=== PATIENT | female | born 1995 | race Two or more races ===

== ENCOUNTER 2024-07-05 11:34 | Emergency (ER) | payer MEDICAID, OTHER ==
[~2024-07-05] VITALS: Ht 162.6 cm; Wt 63.0 kg
[2024-07-05 11:58] VITALS: BP 153/111; PULSE 95; RESP 17; TEMP 98.2; O2SAT 97
[2024-07-05 12:37] LABS: Urine Bacteria MANY /hpf (None Seen); Urine Blood 1+ /uL (Negative); Urine Clarity Clear (Clear); Urine Color Light-Yellow (Yellow); Urine Mucus FEW (None Seen); Urine Protein, UAD 1+ (Negative); Urine Specific Gravity 1.016 (1.001-1.035); Urine Squamous Epithelial Cell FEW /hpf (<5); Urine Urobilinogen Normal (Negative); Urine WBC 8 /HPF (0-5); Urine pH 6.5 (5.0-9.0)
--- NOTE | 2024-07-05 13:34 | ED.PDOC ---
History of Present Illness HPI Comments 28-year-old female with PMHx Asthma presents with a chief complaint of vaginal discharge x 1 week. Patient states that she is having clear discharge from her vagina. Patient mentions that she has not taken any home or OTC medications for this. Patient mentions that she has had this before and was told that it could be a bacterial infection. Patient denies any symptoms other than the discharge at this time. Chief Complaint: Medical Clearance Time Seen by MD: 13:20 Primary Care Provider: none Reviewed Notes: Medications, Allergies Allergies: Coded Allergies: NO KNOWN ALLERGIES (Unverified , 07/05/24) Information Source: Patient Mode of Arrival: Ambulatory Severity: Moderate Timing: Days Duration: Since onset Prehospital treatment: None Past Medical History PAST MEDICAL HISTORY: Asthma Surgical History: Denies all surgeries Family History Family History: Unknown Social History Smoker: Non-Smoker Alcohol: Denies ETOH Use Drugs: Denies Drug Use Lives In: Home Constitutional: denies: chills, diaphoresis, fatigue, fever, malaise, sweats, weakness, others EENTM: denies: blurred vision, double vision, ear bleeding, ear discharge, ear drainage, ear pain, ear ringing, eye pain, eye redness, hearing loss, mouth pain, mouth swelling, nasal discharge, nose bleeding, nose congestion, nose pain, photophobia, tearing, throat pain, throat swelling, voice changes, others Respiratory: denies: cough, hemoptysis, orthopnea, SOB at rest, shortness of breath, SOB with excertion, stridor, wheezing, others Cardiovascular: denies: chest pain, dizzy spells, diaphoresis, Dyspnea on exertion, edema, irregular heart beat, left arm pain, lightheadedness, palpitations, PND, syncope, others Gastrointestinal: denies: abdomen distended, abdominal pain, blood streaked bowels, constipated, diarrhea, dysphagia, difficulty swallowing, hematemesis, melena, nausea, poor appetite, poor fluid intake, rectal bleeding, rectal pain, vomiting, others Genitourinary: reports: vagina discharge; denies: abnormal vagina bleeding, burning, dyspareunia, dysuria, flank pain, frequency, hematuria, incontinence, pain, , urgency, others Neurological: denies: dizziness, fainting, headache, left sided numbness, left sided weakness, numbness, paresthesia, pre-existing deficit, right sided numbness, right sided weakness, seizure, speech problems, tingling, tremors, weakness, others Musculoskeletal: denies: back pain, gout, joint pain, joint swelling, muscle pain, muscle stiffness, neck pain, others Integumetry: denies: bruises, change in color, change in hair/nails, dryness, laceration, lesions, lumps, rash, wounds, others Allergic/Immunocompromised: denies: Difficulty Healing, Frequent Infections, Hives, Itching, others Hematologic/Lymphatic: denies: anemia, blood clots, easy bleeding, easy bruising, swollen glands, others Endocrine: denies: excessive hunger, excessive sweating, excessive thirst, excessive urination, flushing, intolerance to cold, intolerance to heat, unexplained weight gain, unexplained weight loss, others Psychiatric: denies: anxiety, bipolar disorder, depression, hopeless, panic disorder, schizophrenia, sleepless, suicidal, others All Other Systems: Reviewed and Negative Physical Exam General Appearance: No Apparent Distress, Normal HEENT: Normal ENT Inspection, Pharynx Normal, TMs Normal Neck: Full Range of Motion, Non-Tender, Normal, Normal Inspection Respiratory: Chest Non-Tender, Lungs Clear, No Accessory Muscle Use, No Respiratory Distress, Normal Breath Sounds Cardiovascular: No Edema, No JVD, No Murmur, No Gallop, Normal Peripheral Pulses, Regular Rate/Rhythm Breast Exam: Deferred Gastrointestinal: No Organomegaly, Non Tender, No Pulsatile Mass, Normal Bowel Sounds, Soft Genitalia: Deferred Pelvic: Discharge (Medical Records Coder in the room:External vaginal exam no genital warts or lesions. Vaginal canal shows +milky white discharge. No cervical motion tenderness, normal adnexa. No vaginal bleeding or cervicitis.) Rectal: Deferred Extremities: No calf tenderness, Normal capillary refill, Normal inspection, Normal range of motion, Non-tender, No pedal edema Musculoskeletal : Apperance: Normal Neurologic: Alert, shear scrapman II-XII nml as Tested, No Motor Deficits, Normal Affect, Normal Mood, No Sensory Deficits Cerebellar Function: Normal Reflexes: Normal Skin: Dry, Normal Color, Warm Lymphatic: No Adenopathy Was a procedure done? Was a procedure done?: No Differential Dx Considerations may include: vaginitis, yeast infection, g/c, uti X-Ray, Labs, Meds, VS Vital Signs Date Time Temp Pulse Resp B/P (MAP) Pulse Ox O2 Delivery O2 Flow Rate FiO2 07/05/24 11:58 98.2 95 17 153/111 (125) 97 98.2 Lab Test 07/05/24 14:05 07/05/24 11:35 Range/Units Vaginal WBC (Wet Prep) Moderate Vaginal RBC (Wet Prep) None seen Vaginal Epithelial Cells (Wet Prep) Many Vaginal Bacteria (Wet Prep) Few Vaginal Trichomonas (Wet Prep) Not present Vaginal Yeast (Wet Prep) None seen Vaginal Clue Cells (Wet Prep) Few Urine Color Light-yellow Yellow Urine Clarity Clear Clear Urine pH 6.5 5.0-9.0 Urine Specific [place] 1.016 1.001-1.035 Urine Protein 1+ H Negative Urine Ketones Negative Negative Urine Blood 1+ H Negative /uL Urine Nitrite Negative Negative Urine Bilirubin Negative Negative Urine Urobilinogen Normal Negative mg/dL Urine Leukocyte Esterase 1+ Negative /uL Urine RBC 3 0 - 4 /hpf Urine Microscopic WBC 8 H 0-5 /HPF Urine Squamous Epithelial Cells Few <5 /hpf Urine Bacteria Many H None Seen /hpf Urine Mucus Few None Seen Urine Glucose Normal Normal mg/dL Urine Test Negative Negative Chlamydia trachomatis (DONNIE) Pending Neisseria gonorrhoeae (DONNIE) Pending X-Ray, Labs, Meds, VS Comment female presents with vaginal discharge Well appearing, vitals within normal limits, benign abdominal exam Concern for bacterial vaginosis vs less likely cervicitis or UTI. No signs to suggest PID or tubo-ovarian abscess Wet prep + for BV Will treat with flagyl F/u with PMD in 48 hours if symptoms persist. Knows to return for worsening symptoms, fever, continued symptoms, abdominal pain, dysuria, hematuria or any other concern Discussed the results with the patient and the patient vocalized understanding. Patient in agreement with the plan and all questions answered. I also discussed with the patient the limitations of the tests and of the workup performed today, including the chances of false negatives and that examination and treatment that they have received in the Emergency Department is not intended to be a substitute for an effort to provide complete medical care. The imaging, if any, have been interpreted on a preliminary basis pending final reading by the radiologistThe patient was instructed to return immediately to the ED if any changes or worsening of condition should occur.Stressed the importance of outpatient followup and strict return precautions. Time of 1ST Reevaluation: 13:50 Reevaluation 1ST: Improved Patient Education/Counseling: Diagnosis, Treatment Family Education/Counseling: No Family Present Departure 1 Departure Time of Disposition: 15:01 Impression: Primary Impression: Bacterial vaginosis Disposition: 01 HOME / SELF CARE / HOMELESS Condition: Fair e-Prescriptions Metronidazole (Flagyl) 500 Mg Tab 1 TAB PO BID for 7 Days, #14 TAB 0 Refills Prov: CARLEEN ZAMBRANO NP 07/05/24 Critical Care Note Critical Care Time?: No Stability Stability form required: No Heart Score Heart Score: Heart Score Response (Comments) Value History N/A 0 EKG N/A 0 Age N/A 0 Risk Factors N/A 0 Troponin N/A 0 Total 0 I personally scribed for CARLEEN ZAMBRANO NP ([email or web address]) on 07/05/24 at 13:34. Electronically submitted by José Antonio Pope ([email or web address]). CARLEEN ZAMBRANO NP July 05, 2024 13:34
[2024-07-05 14:50] LABS: Vaginal Bacteria Few; Vaginal Epithelial Cells Many; Vaginal Trichomonas Not Present
[2024-07-05 14:51] LABS: Vaginal Clue Cells Few
[2024-07-05] MEDS ORDERED: METR-344 PO (15:02)
[2024-07-06 20:07] LABS: Chlamydia Trachomatis, NAA Negative (Negative); Neisseria gonorrhoeae, NAA Negative (Negative)
== END 2024-07-05 15:43 | disposition home or self-care (01) ==
LOC: ER 11:40
DX: N76.0 Acute vaginitis (principal); J45.909 Unspecified asthma, uncomplicated
CPT/HCPCS: 81001; 81025; 87210